=== PATIENT | female | born 1985 ===

== ENCOUNTER 2019-03-30 14:00 | Inpatient (IN) | payer OTHER ==
[~2019-03-30] VITALS: Ht 160 cm; Wt 86.2 kg
[2019-04-01] MEDS ORDERED: ASPIR 8181 MG PO (07:36)
[2019-04-01] MEDS ORDERED: PROBIOTIC1 EAC2 PO (07:36)
== END 2019-04-03 11:42 | disposition home or self-care (01) | DRG 807 ==
LOC: LDR 04-01 05:15 → OB/GYN 04-01 08:11 → O/R 04-18 14:00 → LDR 04-18 14:00
PROVIDERS: ADMIT Specialist
PROC: 10E0XZZ Delivery of Products of Conception, External Approach (ICD-10-PCS; principal; 2019-04-01)
PROC: 4A1HXCZ Monitoring of Products of Conception, Cardiac Rate, External Approach (ICD-10-PCS; 2019-04-01)
PROC: 4A033R1 Measurement of Arterial Saturation, Peripheral, Percutaneous Approach (ICD-10-PCS; 2019-04-01)
DX: O80 Encounter for full-term uncomplicated delivery (principal); Z37.0 Single live birth; Z22.330 Carrier of Group B streptococcus; Z3A.37 37 weeks gestation of pregnancy